=== PATIENT | male | born 1975 | race Caucasian/White ===

== ENCOUNTER 2022-01-24 13:53 | Emergency (ER) | payer OTHER, SELFPAY ==
[2022-01-24 14:03] VITALS: BP 135/91; PULSE 99; RESP 20; TEMP 36.6; O2SAT 93; BMI 22.8
[2022-01-24 14:58] LABS: Influenza A - CEPHEID Flu A POSITIVE (NEGATIVE); Influenza B - CEPHEID Flu B NEGATIVE (NEGATIVE); Respiratory Syncytial Virus Negative (Negative)
[2022-01-24 15:06] LABS: COVID-19 CEPHEID 4-PLEX PCR Negative (Negative)
--- NOTE | 2022-01-24 15:11 | ED.URI ---
HPI - URI/Sore Throat <DEANNE Gamble - Last Filed: 01/24/22 15:39> General Chief Complaint: Upper Respiratory Symptoms Stated Complaint: Thinks RSV Time Seen by Provider: 01/24/22 15:10 Mode of arrival: Family Vehicle History of Present Illness HPI Narrative: This is a 46-year-old male who presents to the emergency department with his significant other for upper respiratory cough, congestion, sore throat and runny nose which he states started on 01/18/2022. Patient states his significant other has the same symptoms. States that he has tried Tylenol and DayQuil which has helped his runny nose and mildly helped his sore throat. He endorses having a cough, Related Data Allergies Allergy/AdvReac Type Severity Reaction Status Date / Time No Known Drug Allergies Allergy Verified 01/24/22 14:07 Review of Systems <DEANNE Gamble - Last Filed: 01/24/22 15:39> Review of Systems Narrative: Review of systems is negative for acute abnormalities unless otherwise noted in HPI Patient History <DEANNE Gamble - Last Filed: 01/24/22 15:39> Social History Smoking Status: Former smoker Smoking Status: Former smoker alcohol intake frequency: a few times a month Substance Use Type: marijuana Exam <DEANNE Gamble - Last Filed: 01/24/22 15:39> Narrative Exam Narrative: Reviewed vitals signs and nursing notes. General: cooperative, comfortable, in no acute distress, well groomed, afebrile HEENT: symmetrical facial expressions, moist mucous membranes, congestion without sinus tenderness, clear nares, Cardiovascular: regular rate and rhythm, no peripheral edema, warm extremities Respiratory: normal effort, able to speak in complete sentences, without wheezing, stridor, or abnormal breath sounds. No retractions or tachypnea. Occasional cough GI: abdomen soft, nontender to palpation, nondistended, without masses, rebound tenderness or exquisite tenderness with exam. MSK: moves all extremities, neurovascularly intact, no weakness, normal tone Skin: brisk capillary refill, without pallor or erythema Neuro: normal speech and cognition, A&O x3, ambulatory, clear speech Psych: mental status is grossly normal, congruent mood, normal affect, pleasant and cooperative Initial Vital Signs Initial Vital Signs: Vital Signs Temperature 97.8 F 01/24/22 14:03 Pulse Rate 99 H 01/24/22 14:03 Respiratory Rate 20 01/24/22 14:03 Blood Pressure 135/91 H 01/24/22 14:03 Pulse Oximetry 93 01/24/22 14:03 Oxygen Delivery Method 01/24/22 14:03 <Marv Irby DO - Last Filed: 01/24/22 17:46> Initial Vital Signs Initial Vital Signs: Vital Signs Temperature 97.8 F 01/24/22 14:03 Pulse Rate 99 H 01/24/22 14:03 Respiratory Rate 20 01/24/22 14:03 Blood Pressure 135/91 H 01/24/22 14:03 Pulse Oximetry 93 01/24/22 14:03 Oxygen Delivery Method 01/24/22 14:03 Course <DEANNE Gamble - Last Filed: 01/24/22 15:39> Orders Ordered: ED Orders 01/24/22 14:08 Covid-19 + FLU A/B + RSV - PCR Stat Vital Signs Vital signs: Vital Signs - 8 hr 01/24/22 14:03 Temperature 97.8 F Pulse Rate 99 H Respiratory Rate 20 Blood Pressure 135/91 H Pulse Oximetry 93 Oxygen Delivery Method Room Air <Marv Irby DO - Last Filed: 01/24/22 17:46> Orders Ordered: ED Orders 01/24/22 14:08 Covid-19 + FLU A/B + RSV - PCR Stat Vital Signs Vital signs: Vital Signs - 8 hr 01/24/22 14:03 Temperature 97.8 F Pulse Rate 99 H Respiratory Rate 20 Blood Pressure 135/91 H Pulse Oximetry 93 Oxygen Delivery Method Room Air MDM - URI/Sore Throat <DEANNE Gamble - Last Filed: 01/24/22 15:39> Lab Data Labs: Lab Results 01/24/22 Range/Units 14:08 SARS-CoV-2 (PCR) Negative (Negative) Influenza A (RT-PCR) Flu a positive H (NEGATIVE) Influenza B (RT-PCR) Flu b negative (NEGATIVE) RSV (PCR) Negative (Negative) MDM Narrative Medical decision making narrative: This is a pleasant 46-year-old male who presents to the emergency department with 6 days of upper respiratory symptoms including cough, runny nose, sore throat, fever and chills approximately 4 days ago which he states has not returned, denies nausea vomiting, diarrhea. His respiratory panel came back positive for influenza A. Discussed treatment with Tamiflu but patient's symptoms started over 6 days ago, unlikely to be of benefit, he is not had fevers, is nontoxic appearing, without hypoxia, tachypnea, abnormal breath sounds, fever or severe shortness of breath. He endorses pleuritic pain with deep inspiration, states he has been using Tylenol and DayQuil, encouraged ibuprofen, Zyrtec as needed for rhinorrhea, and Mucinex for productive cough. Patient was given strict return precautions to come back to the emergency department if he has return if fever, chills, worsening cough, wheezing chest pain or difficulty breathing. Patient is appropriate and amenable to discharge home. Vital signs are stable on repeat examination is unremarkable. Patient has been informed of results. Patient has been given strict return to ER precautions for any new or worsening symptoms. Patient understands to follow up closely with outpatient providers as instructed. Patient understands plan and agrees to discharge home. All questions and concerns answered at this time. <Marv Irby, - Last Filed: 01/24/22 17:46> Lab Data Labs: Lab Results 01/24/22 Range/Units 14:08 SARS-CoV-2 (PCR) Negative (Negative) Influenza A (RT-PCR) Flu a positive H (NEGATIVE) Influenza B (RT-PCR) Flu b negative (NEGATIVE) RSV (PCR) Negative (Negative) Discharge Plan Departure Patient Disposition: Home Clinical Impression: Influenza A Upper respiratory infection Qualifiers: URI type: unspecified viral URI Qualified Code(s): J06.9 - Acute upper respiratory infection, unspecified Instructions: DI for Influenza -- Adult Activity Restrictions/Additional Instructions: *You have been diagnosed with influenza A. Please stay hydrated, take Tylenol and ibuprofen as needed for pain, inflammation, and discomfort. Please use your albuterol for shortness of breath or chest tightness like you have described. Please take deep breaths frequently, follow-up with your primary doctor if you have ongoing symptoms. You should be getting better already if your symptoms started on . I hope that you start feeling better soon, try Mucinex for a productive cough. *What to do: *Please continue to take your regular medications as directed. [ ] New medication prescriptions sent to your pharmacy: [ ] [ ] New medication written as a paper prescription [x] No new medications given *Please follow up with your primary care provider in 2-3 days, call for an appointment. Let them know you were seen in the Emergency Department and that we asked that you be seen for follow-up. We will electronically transmit a record of today's note if your PCP is in our system *If you do not have a primary care provider please contact [phone] to establish care with one of the [facility] primary care providers. *Return to Emergency Department if you should have any new, worsening, or concerning symptoms, such as [fever greater than 101F, chills, worsening pain, persistent vomiting or other bothersome symptoms]. Visit Report Forms: Patient Portal/API <Marv Irby, DO - Last Filed: 01/24/22 17:46> [facility] Dr Irby Co-Sign Statement: I was available for consultation during this patient's emergency department visit. This chart is signed by myself for administrative purposes only. I did not have direct contact with this patient during this visit. They were seen independently by the APC.
== END 2022-01-24 16:03 | disposition home or self-care (01) ==
PROVIDERS: Emergency Medicine; Emergency Provider Nurse Practitioner Critical Care Medicine
DX: J10.1 Influenza due to other identified influenza virus with other respiratory manifestations (principal); Z20.822 Contact with and (suspected) exposure to COVID-19
CPT/HCPCS: 0241U; 99281; 99282